=== PATIENT | female | born 1980 | race African-American/Black ===

== ENCOUNTER 2022-01-07 15:38 | Emergency (ER) | payer OTHER, SELFPAY ==
[2022-01-07 15:50] VITALS: BP 157/92; PULSE 91; RESP 20; TEMP 37.1; O2SAT 100
[2022-01-07 16:01] VITALS: BP 157/92; PULSE 91; RESP 20; TEMP 37.1; O2SAT 100
--- NOTE | 2022-01-07 16:07 | ED.SKABFB ---
HPI - Skin/Abscess/Foreign Bdy General Chief complaint: Skin/Abscess/Foreign Body Stated complaint: Skin Sore Time Seen by Provider: 01/07/22 16:07 Source: patient Mode of arrival: ambulatory Limitations: no limitations History of Present Illness HPI narrative: 41-year-old female presented for complaint of boils to the left labia for about 3 to 4 days. Endorses pain and swelling. She has applied warm compress and [id number] boil cream. She endorses a second boil developed after using the warm compresses. Endorses a history of boil to the right labia which she has excised herself in the past. Denies active drainage to the sites, numbness, tingling, nausea, vomiting, fevers or chills MD complaint: rash Related Data Home Medications Medication Instructions Recorded Confirmed amlodipine 5 mg tablet 5 mg PO DAILY 01/07/22 01/07/22 furosemide 40 mg tablet 40 mg PO DAILY 01/07/22 01/07/22 insulin lispro 100 unit/mL 15 unit subcut BID 01/07/22 01/07/22 subcutaneous pen lisinopril 40 mg tablet 40 mg PO DAILY 01/07/22 01/07/22 metoprolol succinate 25 mg 25 mg PO DAILY 01/07/22 01/07/22 tablet,extended release 24 hr norgestimate 0.18 mg/0.215 mg/0.25 1 tablet PO DAILY 01/07/22 01/07/22 mg-ethinyl estradiol 25 mcg tablet ([id number]) Allergies Allergy/AdvReac Type Severity Reaction Status Date / Time adhesive tape Allergy Intermediate TAKES SKIN Verified 01/07/22 15:58 OFF acetaminophen Allergy Nausea and Verified 01/07/22 15:58 Vomiting HYDROCODONE BIT Allergy Nausea and Uncoded 01/07/22 15:58 Vomiting Review of Systems Review of Systems: CONSTITUTIONAL: Denies body aches, fever, chills, or sweats. EYES: Denies visual changes, redness, or discharge. CARDIOVASCULAR: Denies chest pain, palpitations, or edema. RESPIRATORY: Denies cough or dyspnea. GASTROINTESTINAL: Denies abdominal pain, nausea, vomiting, or diarrhea. GENITOURINARY: Denies dysuria or hematuria. SKIN: boil to left labia MUSCULOSKELETAL: Denies back pain, joint pain, or myalgia. NEUROLOGIC: Denies headache, numbness, tingling, or weakness. PMFSH Comments At time of signature, I have reviewed and agree with nursing past medical, surgical, social and family history unless otherwise noted. Please see nursing chart for further information. There is no relevant family history pertinent to the presenting complaint Exam Narrative: GENERAL: Well-appearing EYES: conjunctivae clear, and EOMI. ENT: Mucous membranes moist. CHEST: Clear to auscultation. No respiratory distress. HEART: Regular rate and rhythm. SKIN: Warm, dry. left anterior labia with approx 0.5cm diameter fluctuant abscess no active drainage, tender to palpation posterior labial abscess approx 1cm diameter abscess is firm and nonfluctuant no active drainage, nontender, surrounding swelling and induration approx 2.5cm NEURO: Alert and oriented x3. PSYCH: Normal mood and affect Course Course Emergency Course: Patient is aware of diagnosis, understands and agrees to treatment plan. Anticipatory guidance given. Patient agrees to follow-up as directed and is aware of reasons to seek care at the emergency department. Portions of this record may have been created with voice recognition software Level of Care: Express Care Visit Vital Signs Vital signs: Vital Signs Temperature 98.7 F 01/07/22 15:50 Pulse Rate 91 01/07/22 15:50 Respiratory Rate 20 01/07/22 15:50 Blood Pressure 157/92 H 01/07/22 15:50 Pulse Oximetry 100 01/07/22 15:50 Oxygen Delivery Room Air 01/07/22 15:50 Temperature 98.7 F 01/07/22 16:01 Pulse Rate 91 01/07/22 16:01 Respiratory Rate 20 01/07/22 16:01 Blood Pressure 157/92 H 01/07/22 16:01 Pulse Oximetry 100 01/07/22 16:01 Oxygen Delivery Room Air 01/07/22 16:01 Reviewed MDM - Skin/Abscess/Foreign Bdy MDM Narrative Medical decision making narrative: On exam, patient has 2 abscesses to
== END 2022-01-07 16:49 | disposition home or self-care (01) ==
PROVIDERS: Emergency Provider Nurse Practitioner Family
DX: N76.4 Abscess of vulva (principal)
CPT/HCPCS: 99203; G0463

== ENCOUNTER 2023-01-02 19:31 | Emergency (ER) | payer SELFPAY ==
[2023-01-02 19:42] VITALS: BP 193/92; PULSE 101; RESP 18; TEMP 36.6; O2SAT 99
--- NOTE | 2023-01-02 19:45 | ED.SKABFB ---
HPI - Skin/Abscess/Foreign Bdy General Chief complaint: Skin/Abscess/Foreign Body Stated complaint: bite on back Time Seen by Provider: 01/02/23 19:45 Source: patient Mode of arrival: ambulatory Limitations: no limitations History of Present Illness HPI narrative: 42-year-old female presents with complaint of burning, itching rash to right side of back. Noticed symptoms 2 days ago. States started as a small red bump that looked like a blister. That may she scratched herself with her bra. States now she has more small red bumps to back. All systems reviewed and negative except as noted above. Related Data Home Medications Medication Instructions Recorded Confirmed amlodipine 5 mg tablet 5 mg PO DAILY 01/07/22 01/02/23 furosemide 40 mg tablet 40 mg PO DAILY 01/07/22 01/02/23 insulin lispro 100 unit/mL 15 unit subcut BID 01/07/22 01/02/23 subcutaneous pen lisinopril 40 mg tablet 40 mg PO DAILY 01/07/22 01/02/23 metoprolol succinate 25 mg 25 mg PO DAILY 01/07/22 01/02/23 tablet,extended release 24 hr Allergies Allergy/AdvReac Type Severity Reaction Status Date / Time adhesive tape Allergy Intermediate TAKES SKIN Verified 01/02/23 19:47 OFF acetaminophen AdvReac Intermediate Nausea and Verified 01/02/23 19:47 Vomiting hydrocodone AdvReac Intermediate Nausea and Verified 01/02/23 19:47 Vomiting Review of Systems Review of Systems: CONSTITUTIONAL: Denies fever, chills, or sweats. EYES: Denies visual changes, redness, or discharge. ENT: Denies rhinorrhea, congestion, sore throat, or otalgia. CARDIOVASCULAR: Denies chest pain, palpitations, or edema. RESPIRATORY: Denies cough or dyspnea. GASTROINTESTINAL: Denies abdominal pain, nausea, vomiting, or diarrhea. GENITOURINARY: Denies dysuria or hematuria. SKIN: Reports itchy rash to right-sided back. MUSCULOSKELETAL: Denies back pain, joint pain, or myalgia. NEUROLOGIC: Denies headache, numbness, or weakness. PSYCHIATRIC: Denies anxiety or depression. All other systems reviewed are negative, except as documented in HPI. [facility] Comments At time of signature, agree with nursing past medical, surgical, social and family history. There is no relevant family history pertinent to the presenting complaint. Exam Narrative: GENERAL: This is a well-nourished, well-developed patient, in no apparent distress. HEAD: normocephalic, atraumatic. EYES: PERRL. Sclera clear/white. Vision is grossly intact. EARS: External ears normal NOSE: External nose normal NECK: Neck supple, non-tender without lymphadenopathy, masses or thyromegaly. CARDIOVASCULAR: Regular rate and rhythm without murmurs, gallops, or rubs. RESPIRATORY: Clear to auscultation. Breath sounds equal bilaterally. No wheezes, rales, or rhonchi. SKIN: warm, Dry, intact, good texture and turgor. erythematous vesicular rash to R side mid back, tender on palpation NEURO: awake, alert, and oriented to person, place and time. There were no obvious focal neurologic abnormalities. EXTREMITIES: No joint tenderness, effusion, or edema noted. Course Course Level of Care: Express Care Visit Vital Signs Vital signs: Vital Signs Temperature 36.6 C 01/02/23 19:42 Pulse Rate 101 H 01/02/23 19:42 Respiratory Rate 18 01/02/23 19:42 Blood Pressure 193/92 H 01/02/23 19:42 Pulse Oximetry 99 01/02/23 19:42 Oxygen Delivery Room Air 01/02/23 19:42 Temperature 36.6 C 01/02/23 19:47 Pulse Rate 101 H 01/02/23 19:47 Respiratory Rate 18 01/02/23 19:47 Blood Pressure 193/92 H 01/02/23 19:47 Pulse Oximetry 99 01/02/23 19:47 Oxygen Delivery Room Air 01/02/23 19:47 Reviewed, rechecked by this MOTH EXTERMINATOR 156/90 MDM - Skin/Abscess/Foreign Bdy MDM Narrative Medical decision making narrative: Patient is aware of diagnosis, understands and agrees to treatment plan. Anticipatory guidance given. Patient agrees to follow-up as directed and is aware of reasons to seek care at the em
[2023-01-02 19:47] VITALS: BP 193/92; PULSE 101; RESP 18; TEMP 36.6; O2SAT 99
== END 2023-01-02 20:00 | disposition home or self-care (01) ==
PROVIDERS: Emergency Provider Nurse Practitioner Family
DX: B02.9 Zoster without complications (principal); I10 Essential (primary) hypertension; E11.9 Type 2 diabetes mellitus without complications
CPT/HCPCS: 99213; G0463

== ENCOUNTER 2023-05-02 16:14 | Emergency (ER) | payer OTHER, SELFPAY ==
--- NOTE | 2023-05-02 16:20 | ED.SKABFB ---
HPI - Skin/Abscess/Foreign Bdy General Chief complaint: Skin/Abscess/Foreign Body Stated complaint: Boil on Pelvic Area Time Seen by Provider: 05/02/23 16:42 Source: patient, RN notes reviewed and old records reviewed Mode of arrival: ambulatory Limitations: no limitations History of Present Illness HPI narrative: 43-year-old female presents to the [facility] with concerns of a boil or abscess to the suprapubic area below the pannus. States this started yesterday, applied a heating pad and reports that it just keeps getting bigger and more painful. Onset (ago): day(s) (1) Treatments prior to arrival: other (Heating pad) Related Data Home Medications Medication Instructions Recorded Confirmed amlodipine 5 mg tablet 5 mg PO DAILY 01/07/22 01/02/23 furosemide 40 mg tablet 40 mg PO DAILY 01/07/22 01/02/23 insulin lispro 100 unit/mL 15 unit subcut BID 01/07/22 01/02/23 subcutaneous pen lisinopril 40 mg tablet 40 mg PO DAILY 01/07/22 01/02/23 metoprolol succinate 25 mg 25 mg PO DAILY 01/07/22 01/02/23 tablet,extended release 24 hr Allergies Allergy/AdvReac Type Severity Reaction Status Date / Time adhesive tape Allergy Intermediate TAKES SKIN Verified 01/02/23 19:47 OFF acetaminophen AdvReac Intermediate Nausea and Verified 01/02/23 19:47 Vomiting hydrocodone AdvReac Intermediate Nausea and Verified 01/02/23 19:47 Vomiting Review of Systems Review of Systems: All systems reviewed & are unremarkable except as noted in HPI and below Constitutional: Constitutional: Reports no additional constitutional complaints Eyes: Eyes: Reports no additional eye complaints ENT: Reports system reviewed and no additional complaints, except as documented Cardiovascular: Cardiovascular: Reports no additional cardiovascular complaints, Denies chest pain and Denies dyspnea Respiratory: Respiratory: Reports no additional respiratory complaints, Denies chest congestion, Denies cough and Denies dyspnea Gastrointestinal: Gastrointestinal: Reports no additional gastrointestinal complaints, Denies abdominal pain, Denies nausea and Denies vomiting Musculoskeletal: Musculoskeletal: Reports no additional musculoskeletal complaints Integumentary/Breasts: Skin/Breast: Reports as per HPI Neurologic: Reports system reviewed and no additional complaints, except as documented Psychiatric: Psychiatric: Reports no additional psychiatric complaints Allergic/Immunologic: Allergic/Immunologic: Reports no additional allergic/immunologic complaints PMFSH Past Medical History Medical History (Updated 05/03/23 @ 17:35 by Sadia Larkin APRN) Diabetes Hypertension Comments At the time of my signature, I reviewed and agree with the nursing past medical, surgical, social, and family history. There is no relevant family history pertinent to the patient complaint. Exam Const: General: cooperative, healthy appearing, comfortable, no acute distress, well developed, alert and well nourished Nutritional Appearance: well nourished and obese Orientation/consciousness: patient oriented x3 Limitations: no limitations HENMT: Head: normal to inspection Ears: hearing grossly normal bilaterally and external ears normal Face/Nose/Sinus: Normal external nose present, Normal nares present, Normal nasal mucous membranes and turbinates present, normal facial exam and face symmetric Face and sinus: normal facial exam and face symmetric Mouth: Yes Normal oral and palatal mucosa present, Yes lip normal and Yes moist mucous membranes Throat: posterior oropharynx normal and uvula midline Eyes: General: appearance normal, both eyes and all related structures Alignment and Position: alignment normal Periorbital: periorbital findings normal Pupils: Equal, round and reactive pupils present EOM: EOMs intact bilaterally Neck: Neck: normal visual inspection, full ROM, no lymphadenopathy and no meningeal signs Chest: Chest palpation & inspection: normal in
[2023-05-02 16:26] VITALS: BP 191/92; PULSE 104; RESP 18; TEMP 37; O2SAT 100
== END 2023-05-02 17:00 | disposition short-term general hospital (02) ==
LOC: EXPBETH 16:17
PROVIDERS: Emergency Provider Nurse Practitioner
DX: L02.211 Cutaneous abscess of abdominal wall (principal); E11.9 Type 2 diabetes mellitus without complications; I10 Essential (primary) hypertension
CPT/HCPCS: 99212; G0463

== ENCOUNTER 2024-07-15 17:13 | Emergency (ER) | payer OTHER, SELFPAY ==
[2024-07-15 17:25] VITALS: BP 178/87; PULSE 96; RESP 16; TEMP 36.6; O2SAT 100
--- NOTE | 2024-07-15 18:00 | ED_ITS ---
HPI - URI/Sore Throat General Chief Complaint: Upper Respiratory Infection Stated Complaint: Cough/Runny Nose/Chest Congestion Time Seen by Provider: 07/15/24 18:01 Source: patient Mode of arrival: ambulatory Limitations: no limitations History of Present Illness HPI Narrative: 44-year-old female history of Asthma, diabetes and hypertension presented for complaint nasal congestion and cough. Onset 5 days. States it as moving to the chest. She denies shortness of breath, wheezing nausea vomiting, fevers or lethargy. Taking Mucinex for symptoms. running low on albuterol inhaler. Related Data Home Medications ?Medication ?Instructions ?Recorded ?Confirmed ?Last Taken ?Type amlodipine 5 mg tablet 5 mg PO DAILY 01/07/22 01/02/23 Unknown History insulin lispro 100 unit/mL 15 unit subcut BID 01/07/22 01/02/23 Unknown History subcutaneous pen lisinopril 40 mg tablet 40 mg PO DAILY 01/07/22 01/02/23 Unknown History metoprolol succinate 25 mg 25 mg PO DAILY 01/07/22 01/02/23 Unknown History tablet,extended release 24 hr Allergies Allergy/AdvReac Type Severity Reaction Status Date / Time adhesive tape Allergy Intermediate TAKES SKIN Verified 07/15/24 17:29 OFF acetaminophen AdvReac Intermediate Nausea and Verified 07/15/24 17:29 Vomiting hydrocodone AdvReac Intermediate Nausea and Verified 07/15/24 17:29 Vomiting Review of Systems Review of Systems: CONSTITUTIONAL: Denies body aches, fever, chills, or sweats. EYES: Denies visual changes, redness, or discharge. ENT: reports rhinorrhea, congestion, denies sore throat, or otalgia. CARDIOVASCULAR: Denies chest pain, palpitations, or edema. RESPIRATORY: Reports cough, denies sob, wheezing. GASTROINTESTINAL: Denies abdominal pain, nausea, vomiting, or diarrhea. MUSCULOSKELETAL: Denies back pain, joint pain, or myalgia. NEUROLOGIC: Denies headache All systems reviewed & are unremarkable except as noted in HPI and below PMFSH Past Medical History Medical History Hypertension Diabetes Comments At time of signature, I have reviewed and agree with nursing past medical, surgical, social and family history unless otherwise noted. Please see nursing chart for further information. There is no relevant family history pertinent to the presenting complaint Exam Narrative: GENERAL: Well-appearing, in no acute distress. EYES: EOMI. No redness or drainage. Conjunctivae normal. ENT: Mucous membranes pink and moist. nasal congestion noted. Left TM normal; Right TM erythematous with clear effusion. Throat normal. Uvula midline. NECK: Normal AROM. Supple. CHEST: No respiratory distress. Faint exp wheeze to bases. HEART: Regular rate and rhythm. No murmur appreciated. SKIN: Warm, dry, Capillary refill normal. Normal skin turgor. NEURO: Alert and oriented x3. Gait steady. PSYCH: Normal affect. Course Course Emergency Course: Patient is aware of diagnosis, understands and agrees to treatment plan. Anticipatory guidance given. Patient agrees to follow-up as directed and is aware of reasons to seek care at the emergency department. Portions of this record may have been created with voice recognition software Level of Care: Express Care Visit Vital Signs Vital signs: Vital Signs Temperature 98 F 07/15/24 17:25 Pulse Rate 96 07/15/24 17:25 Respiratory Rate 16 07/15/24 17:25 Blood Pressure 178/87 H 07/15/24 17:25 Pulse Oximetry 100 07/15/24 17:25 Oxygen Delivery Room Air 07/15/24 17:25 Temperature 98 F 07/15/24 17:25 Pulse Rate 96 07/15/24 17:25 Respiratory Rate 16 07/15/24 17:25 Blood Pressure 178/87 H 07/15/24 17:25 Pulse Oximetry 100 07/15/24 17:25 Oxygen Delivery Room Air 07/15/24 17:25 MDM - URI/Sore Throat MDM Narrative Medical decision making narrative: Discussed physical exam findings , patient declined viral testing. Reviewed RXs. advised supportive measures and start antibiotic if symptoms worsen. Reviewed signs/symptoms to go to the ER. Pt is appropriate for outpt treatment and f/u. Differential Diagnosis Differential diagnosis: Likely upper respiratory infection, sinusitis, viral infection and bronchitis Discharge Plan Discharge Clinical Impression: Bronchitis, Acute serous otitis media Patient Disposition: Home, Self-Care Condition: Stable Instructions: Antibiotic Form Additional Instructions: Your blood pressure reading was elevated (above 120/80) please follow-up with your primary care provider for further evaluation and management. If you develop worsening Blood Pressure symptoms, (headache, vision changes, dizziness, vomiting, chest pain, etc) go to the ER. Call 911. Acute bronchitis can be contagious because it is usually caused by infection with a virus or bacteria. It is usually for a few days but you can be contagious for up to one week. Avoid crowds until you do not have a fever and symptoms are improved Take medication as directed The steroid may raise your blood sugar levels. use your albuterol every 4-6 hours as needed for shortness of breath /wheezing Recommend Flonase spray and Zyrtec (or Claritin/Prema)For nasal congestion over the counter Cough syrup may cause drowsiness; avoid driving or take it at night time. Coricidin HBP if you have hypertension Tylenol 1000mg every 8 hours as needed for pain Symptomatic treatment includes: rest, fluids, and increase humidity of the air at home. Follow up with your primary care provider as needed in 1 week Go to the ER for worsening symptoms or concerns Patient Language: Portuguese Prescriptions: New methylprednisolone [Medrol (Luis)] 4 mg tablets,dose pack See Rx Instructions .ROUTE .COMPLEX Qty: 21 0RF Rx Instructions: orally per package directions albuterol sulfate 90 mcg/actuation HFA aerosol inhaler 2 inh inhalation QID PRN (Reason: shortness of breath or wheezing) Qty: 8.5 0RF amoxicillin-pot clavulanate 875-125 mg tablet 1 tablet PO Q12H 7 Days Qty: 14 0RF No Action amlodipine 5 mg Tablet 5 mg PO DAILY metoprolol succinate 25 mg Tablet Extended Release 24 Hr 25 mg PO DAILY lisinopril 40 mg Tablet 40 mg PO DAILY insulin lispro [Humalog Pen] 100 unit/mL Insulin Pen 15 unit SUBCUT BID Follow-up/Referrals: Kay Pcae RN [Primary Care Provider] -
== END 2024-07-15 18:13 | disposition home or self-care (01) ==
PROVIDERS: Emergency Provider Nurse Practitioner Family
DX: J40 Bronchitis, not specified as acute or chronic (principal); H65.00 Acute serous otitis media, unspecified ear; E11.9 Type 2 diabetes mellitus without complications; I10 Essential (primary) hypertension
CPT/HCPCS: 99213; G0463